=== PATIENT | male | born 1950 | race Caucasian/White ===

== ENCOUNTER 2017-09-18 11:43 | Observation (INO) | payer MEDICARE, MEDICAID ==
[2017-09-18] MEDS ORDERED: Amiodarone 150 MG IVPREMIX* 150 MG/100 ML BAG IV ONE (11:58)
[2017-09-18] MEDS ORDERED: Aspirin Low Dose CHEW TAB* 81 MG PO ONE (11:58)
[2017-09-18] MEDS ORDERED: Amiodarone 360 MG IVPREMIX* 360 MG/200 ML BAG IV ONE (12:00)
[2017-09-18] MEDS ORDERED: NS 0.9% 1000 ML* 1,000 ML IV SCH (12:00)
[2017-09-18 12:34] LABS: ABS Basophils 0.1 10^3/ul (0-0.2); ABS Eosinophils 0.1 10^3/ul (0-0.6); ABS Neutrophils 4.5 10^3/ul (1.5-7.7); Hemoglobin 16.5 g/dl (14.0-18.0); Red Blood Count 5.27 10^6/ul (4.0-5.4); White Blood Count 6.4 10^3/ul (3.5-10.8)
[2017-09-18 12:36] LABS: ABS Lymphocytes 1.1 10^3/ul (1.0-4.8); ABS Monocytes 0.7 10^3/ul (0-0.8); ABS Nucleated RBC 0.02 10^3/ul; Eosinophil % 1.8 % (0-6); Hematocrit 47 % (42-52); Lymphocyte % 17.6 % (25-47); Mean Corpuscular HGB Conc 35 g/dl (31-36); Mean Corpuscular Hemoglobin 31 pg (27-31); Mean Corpuscular Volume 89 fL (80-94); Mean Platelet Volume 7 um3 (7.4-10.4); Nucleated Red Blood Cells % 0.4; Platelet Count 237 10^3/ul (150-450); Red Cell Distribution Width 13 % (10.5-15)
[2017-09-18 12:51] LABS: EGFR Non-African American 78.6 (>60)
--- NOTE | 2017-09-18 12:56 | RAD ---
Indication: Chest pain. Single frontal view of the chest performed at 1215 hours was reviewed. No prior studies available for comparison. No mediastinal shift is noted. Heart is of normal size and configuration. Lung perez appear clear. IMPRESSION: NO ACTIVE CARDIOPULMONARY DISEASE IS NOTED.
[2017-09-18 12:58] LABS: INR 0.87 (0.77-1.02)
--- NOTE | 2017-09-18 14:04 | ECHO ---
Patient: VIRGINIA GUTIERREZ [facility] Rec#: [id number] : 1950 Date: 09/18/2017 Age: 67y Height: 175.26 cm / 69.0 in Weight: 98.43 kg / 216.9 lbs Sex: M BSA: 2.14 Room#: ED 12 Admit Date#: 09/18/2017 Type: Inpatient Referring: Jan Recinos MD Reading: Avinash Renteria MD Addressograph Operator: Audra Holm,DYLANCS,RDMS CC: Audra De La Garza NP Transthoracic Echocardiogram Indication: CP, near syncope BP: 172/87 HR: 81 Rhythm: NSR Findings History: HLD, GERD, former smoker, ETOH Technical Comments: The study quality is fair. The study is technically limited due to the patient's smoking history. Left Ventricle: The left ventricular chamber size is normal. Mild to moderate concentric left ventricular hypertrophy is observed.sigmoid septum. The estimated ejection fraction is 55-60%. Abnormal left ventricular diastolic filling is observed, consistent with impaired relaxation. Left Atrium: The left atrium is mildly dilated. Right Ventricle: The right ventricular chamber size and systolic function are within normal limits. The right ventricle wall thickness is mildly increased. Right Atrium: The right atrial cavity size is normal. Aortic Valve: The aortic valve is trileaflet. The aortic valve leaflets are mildly thickened. There is no evidence of aortic regurgitation. There is no evidence of aortic stenosis. Mitral Valve: The mitral valve leaflets are mildly thickened. There is a trace of mitral regurgitation. There is no evidence of mitral stenosis. Tricuspid Valve: The tricuspid valve leaflets are normal. There is trace tricuspid regurgitation. No pulmonary hypertension is noted. Pulmonic Valve: The pulmonic valve structure is not well visualized. There is no evidence of pulmonic regurgitation. Pericardium: There is no significant pericardial effusion. Aorta: The aortic root appears normal. There is no dilatation of the aortic arch. Pulmonary Artery: The main pulmonary artery is not well visualized. Venous: The inferior vena cava appears normal in size. There is an approximate 50% respiratory change in the inferior vena cava dimension. Summary: There was not any prior study for comparison. Conclusions The study quality is fair. Mild to moderate concentric left ventricular hypertrophy is observed. The estimated ejection fraction is 55-60%. There is an E to A reversal in the mitral valve flow pattern suggestive of diastolic dysfunction. The left atrium is mildly dilated. The right ventricle wall thickness is mildly increased. There is a trace of mitral regurgitation. There is trace tricuspid regurgitation. Measurements Name Value Normal Range RVIDd (AP) 2D 2.4 cm (0.9 - 2.6) RVDdMajor (2D) 3.5 cm (2.2 - 4.4) RAd ISD 4CH 3.7 cm (3.4 - 4.9) RA (A4C)W 3.4 cm (2.9 - 4.6) IVSd (2D) 1.7 cm (0.6 - 1) LVPWd (2D) 1.5 cm (0.6 - 1) LVIDd (2D) 4.1 cm (3.6 - 5.4) LVIDs (2D) 2.6 cm - LV FS (2D) 36 % (25 - 45) Aortic Annulus 2 cm (1.4 - 2.6) Ao root diameter (2D) 3.2 cm (2.1 - 3.5) Ascending Ao 3.3 cm (2.1 - 3.4) Aortic arch 2.6 cm (1.8 - 3.4) LA dimension (AP) 2D 4.2 cm (2.3 - 3.8) LAd ISD 4CH 4.3 cm (2.9 - 5.3) LA ISD 4CH W 4.6 cm (2.5 - 4.5) Name Value Normal Range LA ESV SP 4CH (A/L) 38.2 ml - LA ESV SP 2CH (A/L) 50.33 ml - LA ESV BP (A/L) 46.69 ml - LA ESV BP (A/L) index 22 ml/m2 - LA ESV SP 4CH (MOD) 35 ml - LA ESV SP 2CH (MOD) 47.76 ml - Name Value Normal Range MV E-wave Vmax 0.6 m/sec - MV deceleration time 160 msec - MV A-wave Vmax 0.9 m/sec - MV E:A ratio 0.7 ratio - LV septal e' Vmax 0.05 m/sec - LV lateral e' Vmax 0.05 m/sec - LV E:e' septal ratio 12 ratio - LV E:e' lateral ratio 12 ratio - Name Value Normal Range AV Vmax 1.2 m/sec - AV VTI 21 cm - AV peak gradient 6 mmHg - AV mean gradient 2.6 mmHg - LVOT Vmax 0.9 m/sec - LVOT VTI 18.1 cm - LVOT peak gradient 3.3 mmHg - LVOT mean gradient 1.6 mmHg - ADELIA Vmax 0.8 m/sec - Name Value Normal Range TR Vmax 2.4 m/sec - TR peak gradient 23 mmHg - RAP 3 mmHg - RVSP 26 mmHg - IVC diameter 1.5 cm - Name Value Normal Range PV Vmax 0.7 m/sec - PV peak gradient 2 mmHg -
[2017-09-18] MEDS ORDERED: Acetaminophen TAB* 325 MG PO PRN (14:33)
[2017-09-18] MEDS ORDERED: predniSONE TAB* 10 MG PO ONE (14:33)
[2017-09-18] MEDS ORDERED: Ondansetron INJ* 2 MG/ML VIAL IV PRN (14:33)
[2017-09-18] MEDS ORDERED: predniSONE TAB* 10 MG ONE (14:42)
[2017-09-18] MEDS ORDERED: predniSONE TAB* 20 MG PO ONE (15:00)
--- NOTE | 2017-09-18 15:26 | RAD ---
Indication: Near syncope. CT of the brain was performed without IV contrast. Ventricular structures are midline. No midline shift is noted. The extra-axial spaces are unremarkable. There is no evidence of intracranial mass or hemorrhage. No other high or low density lesions are identified. Mastoid air cells and paranasal sinuses are unremarkable. IMPRESSION: No intracranial mass or hemorrhage is noted.
--- NOTE | 2017-09-18 15:38 | RAD ---
Indication: Shortness of breath.. Duplex Doppler sonography of the deep venous system of both lower extremities was performed. Bilaterally the common femoral veins, proximal greater saphenous veins, proximal deep femoral veins, femoral veins, popliteal veins, posterior tibial veins appear patent and compressible. Limited evaluation of peroneal veins. IMPRESSION: NO EVIDENCE OF DEEP VENOUS THROMBOSIS OF EITHER LOWER EXTREMITY IS PRESENT. PERONEAL VEINS ARE NOT VISUALIZED BILATERALLY.
[2017-09-18 16:03] LABS: Urine Appearance Clear; Urine Blood Negative (Negative); Urine Color Yellow; Urine Ketones Negative (Negative); Urine Protein Negative (Negative); Urine Specific Gravity 1.009 (1.010-1.030); Urine Urobilinogen Negative (Negative)
--- NOTE | 2017-09-18 16:19 | ED ---
Eran Ch Tecjoon, scribed for Jan Recinos MD on 09/18/17 at 1222 . HPI Chest Pain - HPI Summary HPI Summary: This patient is a 67 year old male BIBA to [facility] accompanied by family with a chief complaint of chest pressure since this morning at approximately 1000. The pain is rated 4/10 in severity and described as "tightness". Symptoms aggravated by nothing. Symptoms alleviated by nothing. The patient reports that he suddenly felt dizzy, weak, pressure down his left arm, and diaphoretic. He felt like he was going to pass out. Patient reports the fuzziness and weakness is still present. Patient denies a hx of hypertension. Patient denies any other issues at this time. - History of Current Complaint Chief Complaint: EDChestPainROMI Time Seen by Provider: 09/18/17 11:55 Hx Obtained From: Patient Onset/Duration: Started Hours Ago - approx 1000, Still Present Time of Onset: 10:00 Timing: Constant Initial Severity: Mild Current Severity: Mild Pain Intensity: 4 Pain Scale Used: 0-10 Numeric Chest Pain Radiates: Yes Chest Pain Radiates To:: Arm - left arm Character: Tightness Aggravating Factor(s): Nothing Alleviating Factor(s): Nothing Associated Signs and Symptoms: Positive: Weakness, Dizziness, Diaphoresis. Negative: Syncope - Allergy/Home Medications Allergies/Adverse Reactions: Allergies Allergy/AdvReac Type Severity Reaction Status Date / Time Chlorine Allergy Rash And Verified 06/01/16 11:56 Itching Iodinated Diagnostic Agents Allergy Rash Verified 05/25/16 10:43 PMH/Surg Hx/FS Hx/Imm Hx Previously Healthy: No Endocrine/Hematology History: Denies: Hx Diabetes, Hx Systemic Lupus Erythematosus Cardiovascular History: Denies: Hx Hypertension GI History: Reports: Hx Gastroesophageal Reflux Disease - ON MEDICATION FOR History: Denies: Hx Dialysis, Hx Renal Disease Musculoskeletal History: Denies: Hx Rheumatoid Arthritis Sensory History: Reports: Hx Cataracts - BILATERAL, Hx Contacts or Glasses - GLASSES Denies: Hx Hearing Aid Opthamlomology History: Reports: Hx Cataracts - BILATERAL, Hx Contacts or Glasses - GLASSES - Cancer History Hx Chemotherapy: No - Surgical History Surgery Procedure, Year, and Place: Plastic surgery left side face late Hx Anesthesia Reactions: No Infectious Disease History: No Infectious Disease History: Denies: Traveled Outside the [place] in Last 30 Days - Family History Known Family History: Negative: Cardiac Disease, Hypertension - Social History Alcohol Use: Daily Alcohol Amount: BEER- 6 PACK PER DAY- MOST OF THE TIME Hx Substance Use: No Substance Use Type: Reports: None Hx Tobacco Use: Yes Smoking Status (MU): Former Smoker Amount Used/How Often: 1 PPD X 40 YEARS Have You Smoked in the Last Year: No Review of Systems Positive: Skin Diaphoresis, Other - dizziness Positive: Chest Pain - "tightness" Positive: Weakness. Negative: Syncope All Other Systems Reviewed And Are Negative: Yes Physical Exam - Summary Physical Exam Summary: General: well-appearing, no pain distress Skin: warm, color reflects adequate perfusion, dry Head: normal Eyes: EOMI, BENNY ENT: normal Neck: supple, nontender Respiratory: CTA, breath sounds present Cardiovascular: RRR Abdomen: soft, nontender Bowel: present Musculoskeletal: normal, strength/ROM intact Neurological: normal, sensory/motor intact, A&O x3 Psychological: affect/mood appropriate Triage Information Reviewed: Yes Vital Signs On Initial Exam: Initial Vitals Temp Pulse Resp BP Pulse Ox 98.2 F 80 18 166/83 89 09/18/17 11:47 09/18/17 11:47 09/18/17 11:47 09/18/17 11:47 09/18/17 11:47 Vital Signs Reviewed: Yes - [place] Coma Scale Coma Scale Total: 15 Diagnostics - Vital Signs Vital Signs Temp Pulse Resp BP Pulse Ox 09/18/17 11:47 98.2 F 80 18 166/83 89 - Laboratory Lab Results: Lab Results 09/18/17 09/18/17 09/18/17 Range/Units 12:25 12:25 12:25 WBC 6.4 (3.5-10.8) 10^3/ul RBC 5.27 (4.0-5.4) 10^6/ul Hgb 16.5 (14.0-18.0) g/dl Hct 47 (42-52) % MCV 89 (80-94) fL MCH 31 (27-31) pg MCHC 35 (31-36) g/dl RDW 13 (10.5-15) % Plt Count 237 (150-450) 10^3/ul MPV 7 L (7.4-10.4) um3 Neut % (Auto) 69.2 (38-83) % Lymph % (Auto) 17.6 L (25-47) % Burnet % (Auto) 10.3 H (1-9) % Eos % (Auto) 1.8 (0-6) % Baso % (Auto) 1.1 (0-2) % Absolute Neuts (auto) 4.5 (1.5-7.7) 10^3/ul Absolute Lymphs (auto) 1.1 (1.0-4.8) 10^3/ul Absolute Monos (auto) 0.7 (0-0.8) 10^3/ul Absolute Eos (auto) 0.1 (0-0.6) 10^3/ul Absolute Basos (auto) 0.1 (0-0.2) 10^3/ul Absolute Nucleated RBC 0.02 10^3/ul Nucleated RBC % 0.4 INR (Anticoag Therapy) 0.87 (0.77-1.02) APTT 33.9 (26.0-36.3) seconds D-Dimer, Quantitative < 200 (Less Than 230) ng/mL Sodium 133 (133-145) mmol/L Potassium TNP Chloride 105 (101-111) mmol/L Carbon Dioxide 20 L (22-32) mmol/L Anion Gap 8 (2-11) mmol/L BUN 16 (6-24) mg/dL Creatinine 0.96 (0.67-1.17) mg/dL Est GFR ( Amer) 101.1 (>60) Est GFR (Non-Af Amer) 78.6 (>60) BUN/Creatinine Ratio 16.7 (8-20) Glucose 120 H (70-100) mg/dL Lactic Acid (0.5-2.0) mmol/L Calcium 9.3 (8.6-10.3) mg/dL Magnesium 2.3 (1.9-2.7) mg/dL Total Bilirubin 0.50 (0.2-1.0) mg/dL AST TNP ALT 47 (7-52) U/L Alkaline Phosphatase 46 (34-104) U/L Total Creatine Kinase 209 (10-223) U/L CK-MB (CK-2) 4.9 (0.6-6.3) ng/mL Troponin I 0.00 (<0.04) ng/mL B-Natriuretic Peptide ( - 100) pg/mL Total Protein 7.6 (6.4-8.9) g/dL Albumin 4.1 (3.2-5.2) g/dL Globulin 3.5 (2-4) g/dL Albumin/Globulin Ratio 1.2 (1-3) TSH 0.73 (0.34-5.60) mcIU/mL 09/18/17 09/18/17 09/18/17 Range/Units 12:25 12:25 13:43 WBC (3.5-10.8) 10^3/ul RBC (4.0-5.4) 10^6/ul Hgb (14.0-18.0) g/dl Hct (42-52) % MCV (80-94) fL MCH (27-31) pg MCHC (31-36) g/dl RDW (10.5-15) % Plt Count (150-450) 10^3/ul MPV (7.4-10.4) um3 Neut % (Auto) (38-83) % Lymph % (Auto) (25-47) % Burnet % (Auto) (1-9) % Eos % (Auto) (0-6) % Baso % (Auto) (0-2) % Absolute Neuts (auto) (1.5-7.7) 10^3/ul Absolute Lymphs (auto) (1.0-4.8) 10^3/ul Absolute Monos (auto) (0-0.8) 10^3/ul Absolute Eos (auto) (0-0.6) 10^3/ul Absolute Basos (auto) (0-0.2) 10^3/ul Absolute Nucleated RBC 10^3/ul Nucleated RBC % INR (Anticoag Therapy) (0.77-1.02) APTT (26.0-36.3) seconds D-Dimer, Quantitative (Less Than 230) ng/mL Sodium (133-145) mmol/L Potassium 4.2 Chloride (101-111) mmol/L Carbon Dioxide (22-32) mmol/L Anion Gap (2-11) mmol/L BUN (6-24) mg/dL Creatinine (0.67-1.17) mg/dL Est GFR ( Amer) (>60) Est GFR (Non-Af Amer) (>60) BUN/Creatinine Ratio (8-20) Glucose (70-100) mg/dL Lactic Acid 0.9 (0.5-2.0) mmol/L Calcium (8.6-10.3) mg/dL Magnesium (1.9-2.7) mg/dL Total Bilirubin (0.2-1.0) mg/dL AST 35 ALT (7-52) U/L Alkaline Phosphatase (34-104) U/L Total Creatine Kinase (10-223) U/L CK-MB (CK-2) (0.6-6.3) ng/mL Troponin I (<0.04) ng/mL B-Natriuretic Peptide 8 ( - 100) pg/mL Total Protein (6.4-8.9) g/dL Albumin (3.2-5.2) g/dL Globulin (2-4) g/dL Albumin/Globulin Ratio (1-3) TSH (0.34-5.60) mcIU/mL Result Diagrams: 09/18/17 12:25 09/18/17 13:43 Lab Statement: Any lab studies that have been ordered have been reviewed, and results considered in the medical decision making process. - Radiology CXR Xray Interpretation: No Acute Changes - IMPRESSION: NO ACTIVE CARDIOPULMONARY DISEASE IS NOTED. Radiology Interpretation Completed By: Radiologist - CT CT Brain CT Interpretation: No Acute Changes - IMPRESSION: No intracranial mass or hemorrhage is noted. ED physician has reviewed this radiology report. CT Interpretation Completed By: Radiologist - EKG 1152 Cardiac Rate: NL EKG Rhythm: Sinus Rhythm - [address] Segment: Normal Ectopy: None - Additional Comments Diagnostic Additional Comments: Transthoracic Echocardiogram reveals, per radiologist, Conclusions The study quality is fair. Mild to moderate concentric left ventricular hypertrophy is observed. The estimated ejection fraction is 55-60%. There is an E to A reversal in the mitral valve flow pattern suggestive of diastolic dysfunction. The left atrium is mildly dilated. The right ventricle wall thickness is mildly increased. There is a trace of mitral regurgitation. There is trace tricuspid regurgitation. ED physician has reviewed this radiology report. Venous Doppler Study reveals, per radiologist, IMPRESSION: NO EVIDENCE OF DEEP VENOUS THROMBOSIS OF EITHER LOWER EXTREMITY IS PRESENT. PERONEAL VEINS ARE NOT VISUALIZED BILATERALLY. ED physician has reviewed this radiology report. Chest Pain Course/Dx - Course Course Of Treatment: Bloodwork Obtained. Urinalysis Obtained. Medications reviewed. Allergies noted. In the ED course the patient was given Aspirin, Nexterone. 9 BEAT RUN OF VTACH SEEN ON MONITOR. PACER PADS PLACED ON PATIENT AND AMIODORONE GIVE. CARDIOLOGY, DR KAMARA, SAW PATIENT IN ED. POSSIBLE ALLERY TO CT DYE SO, PATIENT WILL BE PRETREATED PRIOR TO CTA CHEST DURING ADMISSION. ADMIT HOSPITALIST. - Diagnoses Provider Diagnoses: V-tach, Near syncope, Chest pain - Critical Care Time Critical Care Time: 30-74 min Discharge - Discharge Plan Condition: Stable Disposition: ADMITTED TO [facility] The documentation as recorded by the Eran marshall Tecjoon accurately reflects the service I personally performed and the decisions made by me, Jan Recinos MD.
[2017-09-18 19:05] LABS: EGFR Non-African American 73.3 (>60)
--- NOTE | 2017-09-18 21:17 | CONS ---
CARDIOLOGY CONSULTATION: DATE OF CONSULT: 09/18/17 CONSULTING PROVIDER: Lior Stephenson NP REASON FOR EVALUATION: Near syncope, chest pain. HISTORY OF PRESENT ILLNESS: This is a 67-year-old gentleman, who denies past medical history except for tobacco use, discontinued 10 years ago. He said that he was in his usual state of health, cooking in the kitchen, he said he had deep in turn on the stove, but had been standing, preparing cookies and brownies. He said that he noticed that he became lightheaded and sweaty and then developed some right- sided chest tightness and left hand tingling. He said that it was difficult for him to make it to the chair, he sat in the chair , and he said the symptoms lasted about half hour. They called an ambulance and he was brought to the hospital. He said that his feet started tingling during the ride to the hospital and that he was apprehensive about the whole situation. He said when he was arrived here, he had O2 sat 89% and seemed to be short of breath, that resolved over next hour or so. He also was noted to have a short run of nonsustained wide complex tachycardia while being observed and talking. He had no symptoms and in retrospect it is possible that was artifact with what appears to be the peak of the QRS complexes merging through the "wide complex tachycardia." He reports he has one cup of coffee a day, but does drink alcohol 6 to 10 beers a day. He denies any blackouts or seizures. He denies previous history of murmurs, rheumatic heart disease. He says he did have a stress test at about 1999, which was negative according to the patient and in fact he did have a stress test in April of 2002, which revealed no evidence of ischemia or infarct. He was admitted at that time because the chest pain ruled out and was thought it was due to gastroesophageal reflux. He denies hypertension, diabetes, hyperlipidemia. He denies any allergies. He does say that he walks around his house, sometimes get short of breath walking short distances, other times can walk up at hill. He says that he quit tobacco use 10 years ago after smoking a pack per day for 40 years. The patient denies snoring, denies he falls asleep easily during the day.He dose report a history of syncope with labs draws/exposure to the sight of blood raising the possibiltity of vasovagal syncope. PAST MEDICAL HISTORY: Includes gastroesophageal reflux, tobacco use in the past. He was told of asthmatic bronchitis over the summer and given a metered- dose inhaler but does not use it regularly. PAST SURGICAL HISTORY: Includes multiple fractures and he had trauma to his left eye and had a wire placed on his left eye. MEDICATIONS: His medications at home include Protonix 40 mg b.i.d. ALLERGIES: In the chart, it says that his allergies include CHLORINE with itching and IODINATED AGENTS. In April of 2016, it was noted that he had a rash on his thigh two days after a CT, questionable allergy. SOCIAL HISTORY: He was twice and is now engaged to third partner. He has 3 children. 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 REVIEW OF SYSTEMS: Review of systems x10 was negative except as above. PHYSICAL EXAMINATION: He is a well-developed, overweight gentleman, in no apparent distress. Pulse is 74, blood pressure 159/96, O2 sats 96% on 2 L nasal cannula. Extraocular muscles intact. Sclerae anicteric. Carotids 2+ without bruits. No cervical adenopathy or thyromegaly. Cardiac Exam: S1, S2. No clear murmurs, gallops, or rubs. Chest: Clear. No CVAT. Abdomen: Obese with some tenderness in the right upper quadrant and epigastric area, which he says is 20 years old. Femoral pulses intact without bruits. Distal pulses intact with 1+ edema in the lower extremities, which he says is chronic and resolves with elevation of his legs. Negative Homans' sign. Motor strength 5/5 bilaterally. Deep tendon reflexes 2/4. Alert and oriented x3. DIAGNOSTIC STUDIES/LAB DATA: Include normal CBC. Sodium 133, potassium pending , bicarb 105, BUN of 16, creatinine of 0.96, glucose of 120. ALT of 47, CK of 209, troponin of 0, BNP of 8, TSH of 0.73. EKG, normal sinus rhythm, no acute changes. Chest x-ray was negative. IMPRESSION: My impression is that Mr. Bardales had an episode of diaphoresis and near syncope and hypoxemia of unclear etiology. So far, his lab workup is negative, although potassium is pending. He does have elevated blood pressures. I discussed the case with Lior Stephenson and with Dr. Recinos. There is no evidence of ischemia or infarct. However, we will need to check serial enzymes. At this point in time, the abnormality noted on his EKG raising possibility of VT but appears to be artifact.However, we cannot exclude that an arrhythmia is contributing to his symptoms. Therefore, I recommend the followin. Would obtain an echocardiogram to evaluate for wall motion abnormalities. 2. I have suggested a CT scan to evaluate for pulmonary embolism and dissection. 3. Would rule out for myocardial infarction with serial EKG's and serial troponins. 4. I would check his potassium. 5. I have advised him to decrease his intake of alcohol with increase of intake of water. Further recommendations will depend on his clinical course. [id number]/[facility] #: [id number] TESFAYE
[2017-09-18] MEDS: Heparin VIAL(*) 5000 UNITS/ML VIAL (FIVE THOUSAND) SUBCUT SCH (21:47)
[2017-09-18] MEDS: Omeprazole CAP* 20 MG PO SCH (21:47)
--- NOTE | 2017-09-18 22:58 | HP ---
CC: Dr. Renteria * HISTORY AND PHYSICAL: DATE OF ADMISSION: 09/18/17 PRIMARY CARE PROVIDER: None. ATTENDING PHYSICIAN WHILE IN THE HOSPITAL: Juancho Camargo MD * (report dictated by Lior Stephenson NP). CONSULTING CORN MILLER: Dr. Renteria. CHIEF COMPLAINT: 1. Lightheadedness. 2. Presyncope. HISTORY OF PRESENT ILLNESS: Mr. Bardales is a 67-year-old male patient presenting to the ED today stating that he was standing up today, he was working on making [employer] for the holidays and he became suddenly lightheaded, felt nauseated, got sweaty, felt like he was going to faint. He was able to get to his phone. He was having trouble reading the numbers in the phone, the caller ID, he said I did not have my glasses on, he said that my either vision was not blurry or doubled. He had trouble seeing the smaller fine print. He was able to call 911 and he came into the hospital because he felt like he was going to faint. He says that he just felt really lightheaded. He came on suddenly. He said he did have some left and right- sided chest tightness. He became nauseous. He felt like he was going to vomit. He said that when he was walking to his chair, he felt very unbalanced and unsteady. He denied having any recent illnesses. No recent fevers, chills, nausea, vomiting. No diarrhea recently. No congestion. No URI symptoms were reported. He says he has had chronically for 20 years epigastric discomfort with no clear etiology. He denied having any recent trips or travel. Denied having any pain in the leg, swelling in the legs or calf pain. He was concerned because he says this was the worst he has ever felt. He felt like he was going to faint. He was scared. He called 911 and he came into the hospital. He was evaluated here and they hooked him up to the monitor, there was a question if he had a run of ventricular tachycardia and at that point he was started on amiodarone drip and we were asked to evaluate for admission. PAST MEDICAL HISTORY: Significant for: 1. Hyperlipidemia. 2. GERD. PAST SURGICAL HISTORY: He has had cataract extraction. MEDICATIONS: Home meds include Protonix 40 mg p.o. b.i.d. ALLERGIES TO MEDICATIONS: Include IV DYE questionable and also CHLORINE. FAMILY HISTORY: Mother had a history of CVA, [place] when she was in her 80s. Father had a history of cancer. SOCIAL HISTORY: He is a former smoker. He does drink 6 to 8 beers daily. Surrogate decision maker is his significant other Aidee. REVIEW OF SYSTEMS: There is no documented fever. He denied having any significant weight change. He denies having any double vision. There is no ear discharge. He denies having any rhinorrhea. No sore throat. No thyroid enlargement. He did admit to having chest discomfort, described as a pressure squeezing that he says he has never had before and he has never had exertional chest pain that he can recall. He denied having any shortness of breath. No orthopnea, no nocturnal dyspnea. Denied having any abdominal pain. He did feel nauseous and sweaty, felt hot and flushed. There was no loss of consciousness, no pruritus, and no skin ulcerations. Review of 14 systems completed, all others negative. PHYSICAL EXAMINATION GENERAL: At this time, Mr. Bardales is a 67-year-old male patient. He appears to be well nourished and well developed. He does not appear to be in any acute distress. VITAL SIGNS: Blood pressure 146/89 with a pulse of 72, respirations 18, O2 sat 97%, and temperature 98.2. HEENT: Head: Atraumatic, normocephalic. Eyes: EOMs are intact. Sclerae anicteric, not pale. Throat: Oral mucosa appears to be moist. No oropharyngeal erythema. NECK: Supple. LUNGS: Clear to auscultation bilaterally. No wheezes, rales, or rhonchi. HEART: Sounds S1, S2. Regular rate and rhythm. No murmurs, rubs, or gallops. ABDOMEN: Soft, flat, nontender. Bowel sounds are present. EXTREMITIES: Pulses are 2+ throughout. He is moving all 4 extremities with 5/ 5 strength. NEUROLOGIC: He is awake, he is alert, he is oriented x3. Tongue midline. Grain Combiner are equal. No gross focal deficits. SKIN: Intact. DIAGNOSTIC STUDIES/LAB DATA: WBC 6.4, RBC of 5.27, hemoglobin 16.5, hematocrit 47, platelet count of 237. His INR is 0.87, PTT of 33.9, D-dimer less than 200. Sodium is 133, potassium 4.2, chloride 105, bicarb 20, BUN 16, creatinine of 0.96, glucose 120, lactate 0.9, calcium 9.3, mag 2.0. Total bilirubin 0.5, AST 25, ALT 47, alk phos 46, CK 209, CK-MB 4.9, troponin 0. BNP of 8, albumin 4.1, TSH of 0.73. He had a thoracic echo done here in the ED. It showed an EF of 50% to 55%. He had a chest x-ray obtained today, which showed no active cardiopulmonary disease. He had an EKG obtained today showing normal sinus rhythm with a rate of 79. No ST elevations or T-wave inversions were noted. Old medical records were reviewed. ASSESSMENT AND PLAN: Mr. Bardales is a 67-year-old male patient who appears well nourished, well developed. He is seen in the ER stretcher, does not appear to be in any acute distress. There is concern today when he came in because there was a concern for a possible near syncopal episode. We were asked to evaluate for admission as there was concern for possible ventricular tachycardia. He will be admitted under observation status for: 1. Near syncope with concern for possible ventricular tachycardia again. Dr. Renteria did evaluate the patient. He was not convinced that this was clearly ventricular tachycardia, so at that point amiodarone was stopped and it was recommended that the patient be admitted under observation. I will place him on telemetry. We will go ahead and give him aspirin. We will cycle his troponin. Dr. Renteria would like to check a CTA of the chest to rule out pulmonary embolism. I think this is less like that the D-dimer is negative, but I will premedicate him and go ahead and get a CTA tomorrow to rule this out. He is not having any chest pain now. He says he is feeling much better. We will get orthostatic blood pressures, place him on telemetry and we will continue to follow. I will get a CT of the brain and in addition to this I will check ultrasound of the lower extremities to determine if there is any cause other than obviously have low threshold, we will start anticoagulation. I do not think we need to start anticoagulation. At this point, he is not having any issues with oxygenation. Currently, he is not tachycardic. He is not having any more chest discomfort. I think clinically the pulmonary embolism is less likely. 2. Gastroesophageal reflux disease. Continue PPI therapy. 3. History of hyperlipidemia. We will check the lipids in the morning. 4. DVT prophylaxis. I will place him on heparin subcu for the time being. 5. Code status. Full code. 6. Fluids, electrolytes, and nutrition. He can have a regular diet. TIME SPENT: Time spent on the admission was 60 minutes, greater than half the time was spent [id number] with the patient obtaining my history and physical, the other half of the time was spent going over the plan of care with the patient and implementing plan of care. I did discuss the plan of care with my attending, Dr. Camargo; he is in agreement. LIOR STEPHENSON NP [id number]/[facility] #: [id number] TESFYAE
[2017-09-19 05:30] LABS: ABS Basophils 0 10^3/ul (0-0.2); ABS Eosinophils 0 10^3/ul (0-0.6); ABS Lymphocytes 1.5 10^3/ul (1.0-4.8); ABS Monocytes 0.7 10^3/ul (0-0.8); ABS Neutrophils 4.8 10^3/ul (1.5-7.7); ABS Nucleated RBC 0.01 10^3/ul; Eosinophil % 0.4 % (0-6); Hematocrit 44 % (42-52); Hemoglobin 15.6 g/dl (14.0-18.0); Lymphocyte % 21.5 % (25-47); Mean Corpuscular HGB Conc 35 g/dl (31-36); Mean Corpuscular Hemoglobin 31 pg (27-31); Mean Corpuscular Volume 89 fL (80-94); Mean Platelet Volume 7 um3 (7.4-10.4); Nucleated Red Blood Cells % 0.1; Platelet Count 248 10^3/ul (150-450); Red Blood Count 4.98 10^6/ul (4.0-5.4); Red Cell Distribution Width 13 % (10.5-15); White Blood Count 7.1 10^3/ul (3.5-10.8)
[2017-09-19 05:38] LABS: EGFR Non-African American 71.7 (>60)
[2017-09-19 05:39] LABS: INR 0.9 (0.77-1.02)
[2017-09-19] MEDS: Heparin VIAL(*) 5000 UNITS/ML VIAL (FIVE THOUSAND) SUBCUT SCH ×3 (05:40→21:29)
[2017-09-19] MEDS ORDERED: predniSONE TAB* 50 MG PO ONE ×2 (08:30→20:30)
[2017-09-19] MEDS ORDERED: Potassium Chloride LIQUID* 20 MEQ PACKET PO ONE (10:10)
[2017-09-19] MEDS: Omeprazole CAP* 20 MG PO SCH ×2 (10:43→19:54)
[2017-09-19] MEDS: Aspirin EC Low Dose* 81 MG TAB.EC PO SCH (10:43)
[2017-09-19] MEDS: predniSONE TAB* 50 MG PO SCH ×3 (10:43→21:28)
[2017-09-19] MEDS ORDERED: diPHENhydraMINE PO* 50 MG PO ONE ×2 (14:30→21:30)
[2017-09-19] MEDS ORDERED: predniSONE TAB* 20 MG PO ONE (14:30)
--- NOTE | 2017-09-19 17:16 | PN ---
Subjective Date of Service: 09/19/17 Interval History: Patient admitted yesterday w/ near-syncope. [place] drained suddenly. In ambulance , had some RT-sided chest pain. Today had 30 minutes of dizziness, vertigo, with nystagmus seen by nursing. This felt different than yesterday's event. No chest pain, palpitations. Family History: Unchanged from Admission Social History: Unchanged from Admission Past Medical History: Unchanged from Admission Objective Active Medications: Acetaminophen (Tylenol Tab*) 650 mg PO Q4H PRN PRN Reason: FEVER/PAIN Aspirin (Aspirin Ec Low Dose*) 81 mg PO DAILY [facility] Last Admin: 09/19/17 10:43 Dose: 81 mg Diphenhydramine HCl (Benadryl Po*) 50 mg PO ONCE ONE Stop: 09/19/17 21:31 Heparin Sodium (Porcine) (Heparin Vial(*)) 5,000 units SUBCUT Q8HR [facility] Last Admin: 09/19/17 15:33 Dose: Not Given Omeprazole (Prilosec Cap*) 20 mg PO BID [facility] Last Admin: 09/19/17 10:43 Dose: 20 mg Ondansetron HCl (Zofran Inj*) 4 mg IV Q6H PRN PRN Reason: NAUSEA Prednisone (Deltasone Tab*) 50 mg PO Q6H [facility] Stop: 09/19/17 21:31 Last Admin: 09/19/17 15:25 Dose: 50 mg Vital Signs - 8 hr 09/19/17 09/19/17 11:34 15:11 Temperature 36.4 C Pulse Rate 79 81 Respiratory 20 Rate Blood Pressure 155/91 159/87 (mmHg) O2 Sat by Pulse 97 94 Oximetry Oxygen Devices in Use Now: None Appearance: alert, sitting up, no distress Eyes: No Scleral Icterus, - - nystagmus to LT Ears/Nose/Mouth/Throat: Clear Oropharnyx Neck: NL Appearance and Movements; NL JVP Respiratory: Symmetrical Chest Expansion and Respiratory Effort Cardiovascular: NL Sounds; No Murmurs; No JVD Abdominal: NL Sounds; No Tenderness; No Distention Neurological: Alert and Oriented x 3 Lines/Tubes/Other Access: Clean, Dry and Intact Peripheral IV Result Diagrams: 09/19/17 04:54 09/19/17 04:54 Additional Lab and Data: Laboratory Tests 09/18/17 09/18/17 09/18/17 12:25 15:30 18:43 D-Dimer, Quantitative < 200 Glucose 208 H Hemoglobin A1c Troponin I 0.00 0.00 09/19/17 09/19/17 04:54 04:54 D-Dimer, Quantitative Glucose 105 H Hemoglobin A1c 5.4 Troponin I 0.00 Diagnostic Imaging: CTA chest pending, needs 13 hr prep for contrast Assess/Plan/Problems-Billing Assessment: 67 year old man admitted with pre-syncope, observed on suspicion of PE, vs VT - Patient Problems (1) Pre-syncope Current Visit: Yes Status: Acute Priority: High Comment: -differential includes arrhythmia, pulmonary embolism (despite normal d-dimer) or viral labyrinthitis. -Continue monitor on telemetry -CT chest this evening -cardiology input appreciated. (2) DVT prophylaxis Current Visit: Yes Status: Chronic Priority: Low Code(s): WCF1273 - SNOMED Code(s): 732660110 Comment: -SC heparin refused by patient
[2017-09-19] MEDS ORDERED: Iohexol 350* (CONTRAST) 500 ML MDV IV ONE (21:56)
--- NOTE | 2017-09-19 22:11 | RAD ---
INDICATION: Near syncope. COMPARISON: Comparison is made with a prior chest x-ray study from September 18, 2017. TECHNIQUE: A CT angiogram of the chest was performed with intravenous following intravenous injection of 81 ml of is a vague 320 nonionic contrast. Contiguous axial sections were obtained from the lung apices through the lung bases. Images were reconstructed in the coronal and sagittal planes. FINDINGS: There is slightly less than optimal opacification of the pulmonary arteries limiting the exam slightly. No intraluminal filling defect or pulmonary embolism is seen. The heart is within normal limits in size. No pericardial effusion is present. There are coronary artery calcifications present. The thoracic aorta is normal in caliber and demonstrates homogeneous contrast opacification. No significant enlarged mediastinal or hilar lymph nodes are seen. There is mild dependent bilateral lower lobe infiltrates most consistent with atelectasis. The lungs are otherwise clear. No pleural effusion is present. Images of the upper abdomen demonstrate fatty infiltration of the liver. No acute finding is seen. No significant focal osseous abnormality is seen. IMPRESSION: 1. SLIGHTLY LIMITED EXAM, NO EVIDENCE FOR PULMONARY EMBOLISM. 2. HEPATIC STEATOSIS.
[2017-09-20 07:57] VITALS: BP 150/81
[2017-09-20] MEDS: Heparin VIAL(*) 5000 UNITS/ML VIAL (FIVE THOUSAND) SUBCUT SCH (08:01)
[2017-09-20] MEDS: Omeprazole CAP* 20 MG PO SCH (08:52)
[2017-09-20] MEDS: Aspirin EC Low Dose* 81 MG TAB.EC PO SCH (08:52)
--- NOTE | 2017-09-20 08:59 | PN ---
Subjective Date of Service: 09/20/17 Interval History: Patient seen and examined at bedside. No further chest pain. CTA negative. Eager for discharge. Family History: Unchanged from Admission Social History: Unchanged from Admission Past Medical History: Unchanged from Admission Objective Active Medications: Acetaminophen (Tylenol Tab*) 650 mg PO Q4H PRN Aspirin (Aspirin Ec Low Dose*) 81 mg PO DAILY [facility] Heparin Sodium (Porcine) (Heparin Vial(*)) 5,000 units SUBCUT Q8HR [facility] Omeprazole (Prilosec Cap*) 20 mg PO BID [facility] Ondansetron HCl (Zofran Inj*) 4 mg IV Q6H PRN Vital Signs Temp Pulse Resp BP Pulse Ox 97.3 F 80 18 150/81 94 09/20/17 07:53 09/20/17 07:53 09/20/17 07:57 09/20/17 07:53 09/20/17 07:53 Oxygen Devices in Use Now: None Appearance: sitting up in bed, NAD Eyes: No Scleral Icterus, PERRLA Ears/Nose/Mouth/Throat: NL Teeth, Lips, Gums Neck: NL Appearance and Movements; NL JVP Respiratory: Symmetrical Chest Expansion and Respiratory Effort, Clear to Auscultation Cardiovascular: NL Sounds; No Murmurs; No JVD, RRR Abdominal: NL Sounds; No Tenderness; No Distention Skin: No Rash or Ulcers Neurological: Alert and Oriented x 3, NL Muscle Strength and Tone Lines/Tubes/Other Access: Clean, Dry and Intact Peripheral IV Nutrition: Taking PO's Result Diagrams: 09/19/17 04:54 09/19/17 04:54 Additional Lab and Data: . Diagnostic Imaging: . Assess/Plan/Problems-Billing 67 year old man admitted with pre-syncope, observed on suspicion of PE, vs VT - Patient Problems (1) Pre-syncope Comment: Differential includes arrhythmia or viral labyrinthitis. CTA chest negative for PE. Cards recommends stress test this AM. No arrhythmia seen on telemetry. (2) DVT prophylaxis Comment: Pt refused SQ Heparin. (3) Full code status Status and Disposition: OBV for syncope. D/c home after stress test this AM.
--- NOTE | 2017-09-20 12:20 | RAD ---
Edited for charges. INDICATION: Chest pain. COMPARISON: There are no prior studies available for comparison. Technique: A single day myocardial perfusion stress study was performed. Initially a resting study was performed. The patient was given an intravenous injection of 10.5 mCi of technetium 99m tetrofosmin and and the heart was imaged in multiple projections. The patient returned later in the day and under the direction of Dr. Renteria, the patient was exercised to a peak heart rate of 154 beats per minute which was 99% of the maximum predicted heart rate. Subsequently the patient was given intravenous injection of 25.6 mCi of technetium 99m tetrofosmin and the heart was imaged in multiple projections. Images were reconstructed in the axial, sagittal and coronal planes and in a 3- D format. FINDINGS: There appears to be normal wall motion and myocardial thickening. The left ventricular ejection fraction was calculated to be 74%. No focal perfusion abnormalities are seen on the post exercise or resting data sets. IMPRESSION: NO EVIDENCE FOR INFARCT OR ISCHEMIA. ASSESSMENT: Low risk. MTDD
--- NOTE | 2017-09-21 04:03 | DS ---
CC: Audra De La Garza NP * DISCHARGE SUMMARY: DATE OF ADMISSION: 09/18/17 DATE OF DISCHARGE: 09/20/17 PRIMARY CARE PROVIDER: Audra De La Garza NP ATTENDING PHYSICIAN: Dr. Annia Gipson * (report dictated by Sumaya Queen NP). PRIMARY DIAGNOSIS: Syncope. SECONDARY DIAGNOSIS: Gastroesophageal reflux disease. STUDIES WHILE IN THE HOSPITAL: 1. Chest x-ray portable, 09/18/17, no active cardiopulmonary disease noted. 2. CT of the brain without contrast 09/18/17, no intracranial mass or hemorrhage is noted. 3. CT of the chest, 09/19/17, slightly limited exam, no evidence for pulmonary embolism. Hepatic steatosis. 4. Transthoracic echocardiogram, 09/18/17, study quality is fair. Mild to moderate concentric left ventricular hypertrophy is observed. The estimated ejection fraction is 55% to 60%. There is E to A reversal on the mitral valve pattern suggestive of diastolic dysfunction. The left atrium is mildly dilated. The right ventricle wall thickness is mildly increased. There is a trace of mitral regurgitation. There is a trace of tricuspid regurgitation. 5. Nuclear cardiac stress test 09/20/17 shows no evidence for infarcts or ischemia. There appears to be normal wall motion to myocardial thickening. The left ventricular ejection fraction is calculated to be 74%. MEDICATIONS: At the time of discharge were same on admission, Protonix 40 mg oral twice daily. HISTORY OF PRESENT ILLNESS AND HOSPITAL COURSE: Mr. Bardales is a 67-year-old male with past medical history significant for hyperlipidemia and GERD, who presented to the emergency room on 09/18/17 after a near syncopal episode. The patient came to the emergency room for further evaluation. In the emergency room, there is a question of whether the patient had a run of ventricular tachycardia. Dr. Renteria was consulted and evaluated the patient in the emergency room. Please refer to Dr. Renteria's dictation for detail. It was felt that the ventricular tachycardia was in fact artifact. Recommendations were to cycle troponins, place him on telemetry, and check a CTA of the chest. In addition, the patient had a brain CT. The patient has a sensitivity to iodine, hence he had to be premedicated for the CTA and spent 24 hours here awaiting for the CTA of his chest. He was not anticoagulated empirically at that time. On 09/19/17, the patient had been properly premedicated and went to have a CTA of his chest that was negative for pulmonary embolism. Subsequently , the recommendation was for the patient to have a stress test. Stress test was performed today and showed no evidence of any stress- inducible ischemia. At this point, he was stable to be discharged home. Recommendation is for the patient to properly hydrate and decrease the amount of alcohol intake as it is likely that this episode happened due to dehydration as the patient had been baking in his house for multiple days on end. On 09/20/17 vitals were stable, temperature 97.3, heart rate 80, respiratory rate 18, blood pressure 150/81, and oxygen saturation 94%. At this point, the patient was stable for discharge. DISCHARGE PLAN: The patient was discharged on a heart-healthy diet. The patient can have activity as tolerated. The patient should follow up with Audra De La Garza NP within 1 to 2 weeks. The patient should return to the hospital if he experiences any chest pain, shortness of breath, or syncopal episode. I have reviewed all these instructions with the patient and he is agreeable with this discharge. This is a summarized report of a complex medical history and hospital stay. For more details, please see the entire medical record. TIME SPENT: Time for discharge was 50 minutes and 25 minutes was spent with the patient discussing medications at discharge and followup instructions. CONDITION ON DISCHARGE: Stable. SUMAYA QUEEN NP [id number]/[facility] #: [id number] TESFAYE
== END 2017-09-20 13:45 | disposition home or self-care (01) ==
LOC: ED 11:43 → MEDTELE 14:33
PROVIDERS: ADMIT Internal Medicine; ATTEND Internal Medicine
DX: R55 Syncope and collapse (principal); R07.89 Other chest pain; I47.2 Ventricular tachycardia; R09.02 Hypoxemia; I51.7 Cardiomegaly; I10 Essential (primary) hypertension; R61 Generalized hyperhidrosis; K21.9 Gastro-esophageal reflux disease without esophagitis; Z87.891 Personal history of nicotine dependence; E78.5 Hyperlipidemia, unspecified
CPT/HCPCS: 36415; 70450; 71010; 71275; 78452; 80048; 80053; 80061; 81003; 82550; 82553; 83036; 83605; 83735; 83880; 84443; 84484; 85025; 85379; 85610; 85730; 93005; 93017; 93306; 93970; 96365; 96366; 99284; A9270-GY; A9502; G0378; J0282; J1644; J7512; Q9967

== ENCOUNTER 2018-06-13 10:59 | Inpatient (IN) | payer MEDICARE, MEDICAID ==
--- NOTE | 2018-06-13 11:25 | ED ---
Abdominal Pain/Male - HPI Summary HPI Summary: This patient is a 68 year old M BIBA to [facility] with a chief complaint of intermittent LLQ abdominal pain for the past 5-6 days. Patient was sent to the ED due to an abnormal abdominal CT finding with [facility]. Prior to patients arrival, June Irvin M.D. called to inform of likely ruptured diverticulum. Patient took Ampicillin last evening around 17:00, but has not taken any medication or food today. Patient denies significant pain. Pain is currently 1/10 in severity. Patient has no other complaints at this time. - History of Current Complaint Chief Complaint: EDAbdPain Stated Complaint: POSS ABD INFECTION PER CT SCAN TODAY Time Seen by Provider: 06/13/18 11:03 Hx Obtained From: Patient Onset/Duration: Lasting Days Timing: Intermittent Severity Currently: Mild Pain Intensity: 1 Pain Scale Used: 0-10 Numeric Location: Discrete At: LLQ Alleviating Factor(s): Nothing Associated Signs And Symptoms: Positive: Negative - Allergies/Home Medications Allergies/Adverse Reactions: Allergies Allergy/AdvReac Type Severity Reaction Status Date / Time MS Chlorine [Chlorine] Allergy Rash And Verified 06/01/16 11:56 Itching MS Iodinated Diagnostic Allergy Rash Verified 05/25/16 10:43 Agents [Iodinated Diagnostic Agents] Home Medications: Home Medications Amoxicillin/Clavulanate TAB* [Augmentin TAB 875*] 875 mg PO BID 06/13/18 [ History Confirmed 06/13/18] PMH/Surg Hx/FS Hx/Imm Hx Endocrine/Hematology History: Denies: Hx Diabetes, Hx Systemic Lupus Erythematosus Cardiovascular History: Reports: Hx Angina Denies: Hx Hypertension Respiratory History: Reports: Hx Asthma - albuterol prn Denies: Hx Chronic Obstructive Pulmonary Disease (COPD) GI History: Reports: Hx Gastroesophageal Reflux Disease - ON MEDICATION FOR History: Denies: Hx Dialysis, Hx Renal Disease Musculoskeletal History: Denies: Hx Rheumatoid Arthritis Sensory History: Reports: Hx Cataracts - BILATERAL, Hx Contacts or Glasses - GLASSES Denies: Hx Hearing Aid Opthamlomology History: Reports: Hx Cataracts - BILATERAL, Hx Contacts or Glasses - GLASSES - Cancer History Hx Chemotherapy: No - Surgical History Surgery Procedure, Year, and Place: Plastic surgery left side face late Hx Anesthesia Reactions: No Infectious Disease History: No Infectious Disease History: Denies: Traveled Outside the [place] in Last 30 Days - Family History Known Family History: Negative: Cardiac Disease, Hypertension - Social History Alcohol Use: Daily Alcohol Amount: BEER- 6 PACK PER DAY- MOST OF THE TIME Hx Substance Use: No Substance Use Type: Reports: None Hx Tobacco Use: Yes Smoking Status (MU): Former Smoker Amount Used/How Often: 1 PPD X 40 YEARS Have You Smoked in the Last Year: No Review of Systems Positive: Abdominal Pain Positive: no symptoms reported Negative: Myalgia All Other Systems Reviewed And Are Negative: Yes Physical Exam - Summary Physical Exam Summary: Appearance: The patient is well-nourished in no acute distress and in no acute pain. Skin: The skin is warm and dry and skin color reflects adequate perfusion. HEENT: The head is normocephalic and atraumatic. The pupils are equal and reactive. The conjunctivae are clear and without drainage. Nares are patent and without drainage. Mouth reveals moist mucous membranes and the throat is without erythema and exudate. The external ears are intact. The ear canals are patent and without drainage. The tympanic membranes are intact. Neck: The neck is supple with full range of motion and non-tender. There are no carotid bruits. There is no neck vein distension. Respiratory: Chest is non-tender. Lungs are clear to auscultation and breath sounds are symmetrical and equal. Cardiovascular: Heart is regular rate and rhythm. There is no murmur or rub auscultated. There is no peripheral edema and pulses are symmetrical and equal. Abdomen: The abdomen is soft with tenderness to the LLQ. No rebound. There are normal bowel sounds heard in all four quadrants and there is no organomegaly palpated. Musculoskeletal: There is no back tenderness noted. Extremities are non-tender with full range of motion. There is good capillary refill. There is no peripheral edema or calf tenderness elicited. Neurological: Patient is alert and oriented to person, place and time. The patient has symmetrical motor strength in all four extremities. Cranial nerves are grossly intact. Deep tendon reflexes are symmetrical and equal in all four extremities. Psychiatric: The patient has an appropriate affect and does not exhibit any anxiety or depression. Triage Information Reviewed: Yes Vital Signs On Initial Exam: Initial Vitals Temp Pulse Resp BP Pulse Ox 99 F 98 18 176/98 94 06/13/18 11:01 06/13/18 11:01 06/13/18 11:01 06/13/18 11:01 06/13/18 11:01 Vital Signs Reviewed: Yes Diagnostics - Vital Signs Vital Signs Temp Pulse Resp BP Pulse Ox 06/13/18 11:01 99 F 98 18 176/98 94 - Laboratory Result Diagrams: 06/13/18 12:00 06/13/18 12:05 Lab Statement: Any lab studies that have been ordered have been reviewed, and results considered in the medical decision making process. Abdominal Pain Fem Course/Dx - Course Course Of Treatment: Mr. Bardales presented with left lower quadrant pain and tenderness gradually getting worse over the last few days. He had a hard weekend and saw his PCP Dr. June Irvin on Tuesday which was yesterday. She ordered a CT scan for today which revealed sigmoid diverticulitis with likely ruptured possible abscess. Labs were obtained here and he was noted to be stable with his vital signs. The hospitalist were contacted for admission and further workup. - Diagnoses Provider Diagnoses: Diverticulitis of intestine with perforation - Provider Notifications Discussed Care Of Patient With: Annia Gipson - hospitalist Time Discussed With Above Provider: 13:00 Instructed by Provider To: Admit As Inpatient Discharge - Sign-Out/Discharge Documenting (check all that apply): Patient Departure - admit - Discharge Plan Condition: Stable Disposition: ADMITTED TO [facility] - Billing Disposition and Condition Condition: STABLE Disposition: Admitted to [facility] - Attestation Statements Document Initiated by Scribe: Yes Documenting Scribe: Rosana Almaraz Provider For Whom Scribe is Documenting (Include Credential): Tyson De Guzman MD Scribe Attestation: IRosana, scribed for Tyson De Guzman MD on 06/13/18 at 1520. Scribe Documentation Reviewed: Yes Provider Attestation: The documentation as recorded by the Rosana marshall accurately reflects the service I personally performed and the decisions made by me, Tyson De Guzman MD
[2018-06-13 12:17] LABS: ABS Basophils 0 10^3/ul (0-0.2); ABS Eosinophils 0.1 10^3/ul (0-0.6); ABS Lymphocytes 1.2 10^3/ul (1.0-4.8); ABS Monocytes 0.7 10^3/ul (0-0.8); ABS Neutrophils 5.4 10^3/ul (1.5-7.7); ABS Nucleated RBC 0 10^3/ul; Eosinophil % 1.1 % (0-6); Hematocrit 43 % (42-52); Hemoglobin 15.1 g/dl (14.0-18.0); Lymphocyte % 15.6 % (25-47); Mean Corpuscular HGB Conc 35 g/dl (31-36); Mean Corpuscular Hemoglobin 33 pg (27-31); Mean Corpuscular Volume 93 fL (80-94); Mean Platelet Volume 7.3 um3 (7.4-10.4); Nucleated Red Blood Cells % 0; Platelet Count 277 10^3/ul (150-450); Red Blood Count 4.66 10^6/ul (4.00-5.40); Red Cell Distribution Width 13 % (10.5-15); White Blood Count 7.4 10^3/ul (3.5-10.8)
[2018-06-13 12:26] LABS: INR 0.97 (0.77-1.02)
[2018-06-13 12:39] LABS: EGFR Non-African American 84.4 (>60)
[2018-06-13] MEDS ORDERED: Morphine INJ* 2 MG/ML 1 ML SYRINGE (TWO MG - NEW SYRINGE VERSION) IV PRN (14:21)
[2018-06-13] MEDS ORDERED: oxyCODONE/Acetamin 5/325 MG* TAB PO PRN (14:21)
[2018-06-13] MEDS ORDERED: Temazepam CAP* 15 MG PO PRN (14:21)
[2018-06-13] MEDS ORDERED: Al Hydrox/Mg Hydrox/Simet LIQ* 30 ML UDC PO PRN (14:21)
[2018-06-13] MEDS: cefTRIAXone(*) 1 GM in NS 0.9% 50 ML* 50 ML IVPB SCH (16:14)
[2018-06-13] MEDS: NS 0.9% 1000 ML* 1,000 ML IV SCH (16:14)
[2018-06-13] MEDS: metroNIDAZOLE IV 500 MG/100ML* 500 MG/100 ML BAG IVPB SCH (17:07)
[2018-06-13] MEDS: Omeprazole CAP* 20 MG PO SCH (19:49)
--- NOTE | 2018-06-13 21:32 | HP ---
CC: Dr. June Irvin * HISTORY AND PHYSICAL: DATE OF ADMISSION: 06/13/18 PRIMARY CARE PROVIDER: Dr. June Irvin. CHIEF COMPLAINT: Abdominal pain and abnormal CT scan of the abdomen. HISTORY OF PRESENT ILLNESS: Mitchell Bardales is a 68-year-old male with history of gastroesophageal reflux disease, who stated that he started having severe abdominal pain approximately a week ago. Approximately 3 days ago, the pain was "horrible" to the point that he thought he will . He stated that he waited over the weekend to see his primary care provider on Tuesday. He had lab work done and CAT scan of the abdomen reported today perforated sigmoid diverticulitis. He presented to the ED with the CT report for evaluation. He was started on Augmentin and he took the first dose yesterday. He is going to be admitted with a diagnosis of perforated diverticulitis. PAST MEDICAL HISTORY: 1. History of gastroesophageal reflux disease, severe with chronic cough that improved after treatment with proton pump inhibitor. 2. History of dyslipidemia. PAST SURGICAL HISTORY: History of cataract surgery. CURRENT MEDICATIONS: Include: 1. Protonix 40 mg in the morning. 2. Omeprazole [id number] 20 mg at night. ALLERGIES: No known drug allergies, but he has questionable allergy to IV DYE. FAMILY HISTORY: Mother with history of CVA and [place] in her 80s. Father with history of cancer. SOCIAL HISTORY: The patient has a history of smoking. He quit smoking 11 years ago. He drinks 6 to 8 beers a day. Surrogate decision maker is his girlfriend, Aidee. REVIEW OF SYSTEMS: Please see history of present illness. In addition to above mentioned, the patient stated that his bowels have been regular. His abdominal pain is much better than it was 3 days ago. He denies any fevers. All the remaining 12 systems were reviewed with the patient and were otherwise negative. PHYSICAL EXAMINATION GENERAL: The patient is a very pleasant 68-year-old male, who is in no acute distress. Alert, awake, and oriented x3. VITAL SIGNS: Blood pressure of 176/98, heart rate of 98 and regular, respiratory rate 18, oxygen saturation 94% on room air, temperature of 99.4. HEENT: Head: Atraumatic, normocephalic. Eyes: Pupils are equal, reactive to light and accommodation. Oropharynx is clear. Mucosa moist. NECK: Supple. No JVD. No bruits bilaterally. RESPIRATORY: Clear to auscultation bilaterally. CARDIOVASCULAR: Regular rate and rhythm. No murmur. ABDOMEN: Distended, soft, markedly tender in the left lower quadrant with positive guarding. No rebound. Bowel sounds are hypoactive, but present in all 4 quadrants. EXTREMITIES: There is no edema. Pulses are +2 bilaterally. No clubbing or cyanosis. NEUROLOGIC: Speech is clear. Cranial nerves II through XII are grossly intact. Motor strength is 5/5 bilaterally. SKIN: On evaluation of the skin, no ecchymotic areas or rashes noted. DIAGNOSTIC STUDIES/LAB DATA: Showed white blood cell count of 7.4, hemoglobin of 15.1, hematocrit of 43, and platelets of 277. Sodium was 137, potassium 3.7 , chloride 106, carbon dioxide 24, BUN 14, creatinine 0.9. Liver function tests unremarkable apart from mild elevation of ALT at 58. The patient's C- reactive protein was 54. CT of the abdomen obtained at [facility] today, impression: "Finding compatible with ruptured acute sigmoid diverticulitis with probable phlegmonous changes versus developing abscess measuring approximately 1.8 cm in diameter. Recommend routine followup in 4 to 6 weeks after completion of treatment to exclude an underlying mass lesion. No hydronephrosis or nephrolithiasis. Enlarged prostate at 6.5 cm. Correlation with PSA level may be considered. Significantly, results were discussed with Dr. June Irvin." ASSESSMENT AND PLAN: 1. The patient has perforated sigmoid diverticulitis. At this point, he is in no acute distress and he does not meet sepsis criteria. He is going to be admitted to the hospital with clear liquids for diet, intravenous fluids, supportive treatment as well as treatment with ceftriaxone and Flagyl. I will ask surgical service to follow up with the patient in consultation, but hopefully the patient's infection will need only conservative treatment. 2. In regards to the patient's gastroesophageal reflux disease, which is rather severe, Prilosec twice a day is going to be continued. 3. For DVT prophylaxis, the patient is going to be placed on heparin subcutaneously. 4. The patient's code status is full. His surrogate is his significant other, Aidee Szymanski. TIME SPENT: Approximately 65 minutes were spent on admission of this patient, more than half of that time was spent [id number] with the patient during the interview and physical exam. [id number]/[facility] #: [id number] TESFAYE
[2018-06-13] MEDS: Heparin VIAL(*) 5000 UNITS/ML VIAL (FIVE THOUSAND) SUBCUT SCH (21:38)
--- NOTE | 2018-06-13 23:44 | CONS ---
CC: June Irvin MD in [place] * CONSULTATION REPORT: DATE OF CONSULT: 06/13/18 REQUESTING PHYSICIAN: Dr. Annia Gipson. REASON FOR CONSULT: Perforated diverticulitis. HISTORY OF PRESENT ILLNESS: Mr. Bardales is a 68-year-old gentleman with no significant past medical history, who reports gradual onset of left lower quadrant abdominal pain starting on 06/07/18. Initially, he thought he had pulled muscle as this occurred after he had been lifting heavy 5-gallon tubs at his residence. He had no fevers or chills and no nausea or vomiting. He denies constipation or diarrhea. He did not take any pain medication and noted that the pain worsened over the next 2 to 3 days to the point where it was so severe on 06/10/18 that he decided to seek medical care. The patient did see his primary care provider, Dr. Irvin in [place] on 06/12/18, at which point he was started on oral antibiotics and referred for outpatient CT scan abdomen and pelvis. He took 1 dose of antibiotics and presented for CT scan this morning and after he returned home, he received a phone call from Dr. Irvin's office directing him to the emergency room. The patient again denies fevers, chills, nausea, vomiting, diarrhea, or constipation. He does have pain prior to urinating that seems to improve as he voids, which he relates to this abdominal pain. He notes no hematuria. He denies having similar pain in the past. PAST MEDICAL HISTORY: GERD. PAST SURGICAL HISTORY: Bilateral cataracts. MEDICATIONS: 1. Protonix 40 mg p.o. b.i.d. 2. Augmentin 875 mg p.o. b.i.d. ALLERGIES: IV CONTRAST AND CHLORINE. FAMILY HISTORY: Noncontributory. SOCIAL HISTORY: He is an ex-smoker with history of smoking a pack and a half a day for 40 years. He drinks 7 to 8 beers daily. 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 He has been engaged for 11 years. REVIEW OF SYSTEMS: As above. PHYSICAL EXAM: Temperature 99, T-max; pulse 76; respirations 17; O2 sat 95% on room air; blood pressure 155/96. He is 5 feet 9 inches tall, 222 pounds. Sclerae anicteric and his mucous membranes are moist. His abdomen is protuberant with no scars. He has no distention or tympany. Bowel sounds are present. It is soft in all 4 quadrants with tenderness in the left lower quadrant and suprapubic region. There is tenderness to percussion in the left lower quadrant. Extremities are warm. DIAGNOSTIC STUDIES/LAB DATA: His WBCs are 7.4, hemoglobin 15.1, platelets 277. There is no left shift. His chemistries are notable for elevated glucose at 134. ALT elevated at 58. CRP is 54. Imaging from [facility] is a CT scan abdomen and pelvis without oral or IV contrast demonstrating phlegmonous changes involving the proximal sigmoid colon with droplets of free air and no fluid collections noted. IMPRESSION: A 68-year-old male with first episode of sigmoid diverticulitis with microperforation. It does not appear to require any urgent or emergent surgical intervention. PLAN/RECOMMENDATIONS: Agree with plan for admission with IV antibiotics and serial abdominal exams and laboratory work to assess improvement. Should he fail to improve or if he subsequently develops complications, surgical intervention may be needed. [facility] will be available to you. [id number]/[facility] #: [id number] GILESD
[2018-06-14] MEDS: metroNIDAZOLE IV 500 MG/100ML* 500 MG/100 ML BAG IVPB SCH ×4 (00:08→23:53)
[2018-06-14] MEDS: NS 0.9% 1000 ML* 1,000 ML IV SCH ×3 (04:14→21:41)
[2018-06-14 05:55] LABS: ABS Basophils 0 10^3/ul (0-0.2); ABS Eosinophils 0.1 10^3/ul (0-0.6); ABS Lymphocytes 1.2 10^3/ul (1.0-4.8); ABS Monocytes 0.7 10^3/ul (0-0.8); ABS Neutrophils 5.3 10^3/ul (1.5-7.7); ABS Nucleated RBC 0 10^3/ul; Hematocrit 41 % (42-52); Hemoglobin 14.3 g/dl (14.0-18.0); Lymphocyte % 16.4 % (25-47); Mean Corpuscular HGB Conc 35 g/dl (31-36); Mean Corpuscular Hemoglobin 32 pg (27-31); Mean Corpuscular Volume 93 fL (80-94); Mean Platelet Volume 6.9 um3 (7.4-10.4); Nucleated Red Blood Cells % 0.1; Platelet Count 270 10^3/ul (150-450); Red Blood Count 4.45 10^6/ul (4.00-5.40); Red Cell Distribution Width 13 % (10.5-15); White Blood Count 7.5 10^3/ul (3.5-10.8)
[2018-06-14] MEDS: Heparin VIAL(*) 5000 UNITS/ML VIAL (FIVE THOUSAND) SUBCUT SCH (06:06)
[2018-06-14 06:09] LABS: EGFR Non-African American 87.8 (>60)
[2018-06-14] MEDS: Acetaminophen TAB* 325 MG PO PRN ×3 (07:18→21:35)
[2018-06-14] MEDS: Omeprazole CAP* 20 MG PO SCH ×2 (08:20→21:36)
--- NOTE | 2018-06-14 09:04 | PN ---
Subjective Date of Service: 06/14/18 Interval History: Pt c/o mild dull pain in LLQ.tolerating clears well. No BM x 24H Objective Active Medications: Acetaminophen (Tylenol Tab*) 650 mg PO Q4H PRN PRN Reason: FEVER/PAIN Last Admin: 06/14/18 07:18 Dose: 650 mg Al Hydrox/Mg Hydrox/Simethicone (Maalox Plus*) 30 ml PO Q6H PRN PRN Reason: INDIGESTION Heparin Sodium (Porcine) (Heparin Vial(*)) 5,000 units SUBCUT Q8HR [facility] Last Admin: 06/14/18 06:06 Dose: Not Given Sodium Chloride (Ns 0.9% 1000 Ml*) 1,000 mls @ 100 mls/hr IV PER RATE [facility] Last Admin: 06/14/18 04:14 Dose: 100 mls/hr Metronidazole/Sodium Chloride (Flagyl 500 Mg Ivpb*) 500 mg in 100 mls @ 100 mls /hr IVPB Q8H [facility] Last Admin: 06/14/18 08:20 Dose: 100 mls/hr Ceftriaxone Sodium 1 gm/ (Sodium Chloride) 50 mls @ 200 mls/hr IVPB Q24H [facility] Last Admin: 06/13/18 16:14 Dose: 200 mls/hr Morphine Sulfate (Morphine Inj ((Syringe))*) 1 mg IV Q4H PRN PRN Reason: PAIN - MILD Omeprazole (Prilosec Cap*) 20 mg PO BID [facility] Last Admin: 06/14/18 08:20 Dose: 20 mg Oxycodone/Acetaminophen (Percocet 5/325 Tab*) 1 tab PO Q4H PRN PRN Reason: Pain Temazepam (Restoril Cap*) 15 mg PO BEDTIME PRN PRN Reason: INSOMNIA Vital Signs - 8 hr 06/14/18 06/14/18 06/14/18 03:33 07:10 07:25 Temperature 98.0 F 98.4 F Pulse Rate 74 74 Respiratory 18 16 16 Rate Blood Pressure 115/60 135/71 (mmHg) O2 Sat by Pulse 93 94 94 Oximetry Oxygen Devices in Use Now: None Appearance: 68 yo M in nAD, aAOx3 Eyes: No Scleral Icterus, PERRLA Ears/Nose/Mouth/Throat: NL Teeth, Lips, Gums, Mucous Membranes Moist Neck: NL Appearance and Movements; NL JVP, Trachea Midline Respiratory: Symmetrical Chest Expansion and Respiratory Effort, Clear to Auscultation Cardiovascular: NL Sounds; No Murmurs; No JVD, RRR Abdominal: - - distended, soft, tender in LLQ, no rebound, + guarding, BS+ Lymphatic: No Cervical Adenopathy Extremities: No Edema Skin: No Rash or Ulcers, No Nodules or Sclerosis Neurological: Alert and Oriented x 3, NL Muscle Strength and Tone Result Diagrams: 06/14/18 05:43 06/14/18 05:43 Assess/Plan/Problems-Billing Assessment: 68 yo M with h/o ETOH use(6-8 beers /day), GERD presents with perforated diverticulitis - Patient Problems (1) Diverticulitis large intestine Comment: with perforation and possible organizing abscess at 1.8 cm Still ceo and 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 Status and Disposition: Inpatient
[2018-06-14] MEDS: cefTRIAXone(*) 1 GM in NS 0.9% 50 ML* 50 ML IVPB SCH (15:32)
--- NOTE | 2018-06-14 18:46 | PN ---
Progress Note - Progress Note Date of Service: 06/14/18 SOAP: Subjective: He feels much better after a BM. No pain/N/V reported. He reports he has never had a colonoscopy. Objective: Vital Signs Temp 98.4 F 06/14/18 15:41 Pulse 81 06/14/18 15:41 Resp 20 06/14/18 15:41 BP 144/79 06/14/18 15:41 Pulse Ox 98 06/14/18 15:41 gen: NAD abd: protruberant; soft; decreased tenderness in suprapubic and LLQ. Intake & Output 06/13/18 06/14/18 06/14/18 18:59 06:59 18:59 Intake Total 1000 2850 950 Output Total 503 663 7940 Balance 825 2130 -325 Weight 222 lb Intake: IV Fluids 950 NS (0.9%) 950 IVPB 100 ABX - FLAGYL 100 Oral 1000 1800 950 Output: Urine 271 467 3362 Laboratory Results - last 24 hr 06/14/18 06/14/18 05:43 05:43 WBC 7.5 RBC 4.45 Hgb 14.3 Hct 41 L MCV 93 MCH 32 H MCHC 35 RDW 13 Plt Count 270 MPV 6.9 L Neut % (Auto) 71.2 Lymph % (Auto) 16.4 L Bracken % (Auto) 9.8 H Eos % (Auto) 2.0 Baso % (Auto) 0.6 Absolute Neuts (auto) 5.3 Absolute Lymphs (auto) 1.2 Absolute Monos (auto) 0.7 Absolute Eos (auto) 0.1 Absolute Basos (auto) 0 Absolute Nucleated RBC 0 Nucleated RBC % 0.1 Sodium 138 Potassium 3.6 Chloride 108 Carbon Dioxide 24 Anion Gap 6 BUN 12 Creatinine 0.87 Est GFR ( Amer) 106.2 Est GFR (Non-Af Amer) 87.8 BUN/Creatinine Ratio 13.8 Glucose 103 H Calcium 8.5 L Assessment: Presumed sigmoid diverticulitis. He is clinically improved and does not require surgical intervention. Plan: Continue antibiotics. Slowly progress to low residue diet. He should have a referral to GI as he will eventually need a colonoscopy to r/o malignancy (d/w patient).
[2018-06-15 06:40] LABS: Hematocrit 40 % (42-52); Hemoglobin 14.2 g/dl (14.0-18.0); Mean Corpuscular HGB Conc 36 g/dl (31-36); Mean Corpuscular Hemoglobin 33 pg (27-31); Mean Corpuscular Volume 92 fL (80-94); Platelet Count 270 10^3/ul (150-450); Red Blood Count 4.34 10^6/ul (4.00-5.40); Red Cell Distribution Width 13 % (10.5-15); White Blood Count 5.8 10^3/ul (3.5-10.8)
[2018-06-15 06:54] LABS: EGFR Non-African American 86.6 (>60)
[2018-06-15] MEDS: metroNIDAZOLE IV 500 MG/100ML* 500 MG/100 ML BAG IVPB SCH ×2 (08:15→16:27)
[2018-06-15] MEDS: NS 0.9% 1000 ML* 1,000 ML IV SCH (08:15)
[2018-06-15] MEDS: Omeprazole CAP* 20 MG PO SCH ×2 (08:50→19:32)
--- NOTE | 2018-06-15 15:23 | PN ---
Subjective Date of Service: 06/15/18 Interval History: pt feels much better today. abd pain "minimal" Objective Active Medications: Acetaminophen (Tylenol Tab*) 650 mg PO Q4H PRN PRN Reason: FEVER/PAIN Last Admin: 06/14/18 21:35 Dose: 650 mg Al Hydrox/Mg Hydrox/Simethicone (Maalox Plus*) 30 ml PO Q6H PRN PRN Reason: INDIGESTION Metronidazole/Sodium Chloride (Flagyl 500 Mg Ivpb*) 500 mg in 100 mls @ 100 mls /hr IVPB Q8H [facility] Last Admin: 06/15/18 08:15 Dose: 100 mls/hr Ceftriaxone Sodium 1 gm/ (Sodium Chloride) 50 mls @ 200 mls/hr IVPB Q24H [facility] Last Admin: 06/14/18 15:32 Dose: 200 mls/hr Sodium Chloride (Ns 0.9% 1000 Ml*) 1,000 mls @ 50 mls/hr IV PER RATE [facility] Last Admin: 06/15/18 08:15 Dose: 50 mls/hr Morphine Sulfate (Morphine Inj ((Syringe))*) 1 mg IV Q4H PRN PRN Reason: PAIN - MILD Omeprazole (Prilosec Cap*) 20 mg PO BID [facility] Last Admin: 06/15/18 08:50 Dose: 20 mg Oxycodone/Acetaminophen (Percocet 5/325 Tab*) 1 tab PO Q4H PRN PRN Reason: Pain Temazepam (Restoril Cap*) 15 mg PO BEDTIME PRN PRN Reason: INSOMNIA Vital Signs - 8 hr 06/15/18 09:05 Temperature 97.7 F Pulse Rate 67 Respiratory 16 Rate Blood Pressure 147/75 (mmHg) O2 Sat by Pulse 97 Oximetry Oxygen Devices in Use Now: None Appearance: 68 yo m in nAD, aAOx3 Eyes: No Scleral Icterus, PERRLA Ears/Nose/Mouth/Throat: NL Teeth, Lips, Gums, Mucous Membranes Moist Neck: NL Appearance and Movements; NL JVP, Trachea Midline Respiratory: Symmetrical Chest Expansion and Respiratory Effort, Clear to Auscultation Cardiovascular: NL Sounds; No Murmurs; No JVD Abdominal: - - distended, tympanic, mild tenderness in LLQ, no rebound, no guarding, BS+ Lymphatic: No Cervical Adenopathy Extremities: No Edema Skin: No Rash or Ulcers, No Nodules or Sclerosis Neurological: Alert and Oriented x 3, NL Muscle Strength and Tone Result Diagrams: 06/15/18 06:16 06/15/18 06:16 Microbiology and Other Data: Microbiology 06/13/18 12:00 Aerobic Blood Culture - Preliminary Blood Venous No Growth Day 2 Anaerobic Blood Culture - Preliminary No Growth Day 2 06/13/18 12:05 Aerobic Blood Culture - Preliminary Blood Venous No Growth Day 2 Anaerobic Blood Culture - Preliminary No Growth Day 2 Assess/Plan/Problems-Billing Assessment: 68 yo M with h/o ETOH use(6-8 beers /day), GERD presents with perforated diverticulitis - Patient Problems (1) Diverticulitis large intestine Comment: with perforation and possible organizing abscess at 1.8 cm 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 Status and Disposition: Inpatient
[2018-06-15] MEDS: cefTRIAXone(*) 1 GM in NS 0.9% 50 ML* 50 ML IVPB SCH (15:35)
[2018-06-16] MEDS: metroNIDAZOLE IV 500 MG/100ML* 500 MG/100 ML BAG IVPB SCH ×2 (00:10→07:47)
[2018-06-16] MEDS: Omeprazole CAP* 20 MG PO SCH (07:47)
[2018-06-16 08:12] VITALS: BP 139/77
--- NOTE | 2018-06-17 03:55 | DS ---
CC: Dr. June Irvin; Dr. Negron * DISCHARGE SUMMARY: DATE OF ADMISSION: 06/13/18 DATE OF DISCHARGE: 06/16/18 PRIMARY CARE PROVIDER: Dr. June Irvin. DISCHARGE DIAGNOSES: Acute sigmoid diverticulitis with perforation and microabscess. SECONDARY DIAGNOSES: 1. Gastroesophageal reflux disease. 2. History of dyslipidemia. MEDICATIONS AT DISCHARGE: Include: 1. Ciprofloxacin 500 mg p.o. b.i.d. for 14 days total. 2. Metronidazole 500 mg 3 times a day for 14 days total. 3. Protonix 40 mg b.i.d. actually takes 40 mg in the morning of Protonix and 20 mg at night of omeprazole. LABORATORY DATA AND STUDIES PERFORMED DURING THE HOSPITAL STAY: On 06/15/18, white blood cell count of 5.8, hemoglobin of 14.2, hematocrit of 40, and platelets of 270. Sodium was 141, potassium 3.7, chloride 111, carbon dioxide 23, BUN 9, creatinine 0.88. CONSULTATIONS DURING THE HOSPITAL STAY: Included Dr. Negron. HOSPITALIZATION COURSE: Mitchell Bardales is a 68-year-old male who presented to our hospital with CT scan read from [facility] that showed ruptured acute sigmoid diverticulitis with probable phlegmonous changes of 1.8 cm in diameter. The patient was admitted to the hospital. Initially, he had significant left lower quadrant abdominal pain. He was placed on ceftriaxone and Flagyl with very good results. He never developed fever or leukocytosis. Gradually, his diet was able to be increased to the point that he was up to soft diet by the time of discharge. He was educated about low-fiber diet initially by our nutrition service. By the time of discharge, he complained of flatulence and abdominal distention, but the abdominal pain resolved. He had no problems with bowel movements and no nausea and vomiting. He is going to be discharged home with recommendations to continue his oral antibiotics for a total of 14 days. He is to follow up with Dr. Negron in approximately 1 to 2 weeks. He is to follow up with his primary care provider in approximately 4 to 7 days. The patient is recommended to have a followup CT scan in 4 to 6 weeks to document resolution of his phlegmon. PHYSICAL EXAMINATION AT THE TIME OF DISCHARGE: Blood pressure of 139/77, heart rate of 70 and regular, respiratory rate 18, oxygen saturation 94% on room air, temperature 97.5. General: The patient is a very pleasant 68-year-old male, who is in no acute distress. Alert and oriented x3. HEENT: Head: Atraumatic , normocephalic. Eyes: Pupils are equal, reactive to light and accommodation. Oropharynx is clear. Mucosa moist. Neck: Supple. No JVD. No bruits bilaterally. Cardiovascular: Regular rate and rhythm. No murmur. Respiratory : Clear to auscultation bilaterally. Abdomen: Distended, soft, nontender. Tympanic to percussion. Bowel sounds are present in all 4 quadrants. Extremities: There is no edema. Pulses are 2+ bilaterally. No clubbing or cyanosis. Neuro Evaluation: Speech clear. Cranial nerves II through XII grossly intact. Motor strength is 5/5 bilaterally. Please note that this is a short summary of the patient's hospital stay. Please refer to further medical records for details. TIME SPENT: Approximately 40 minutes were spent on the patient's discharge. [id number]/[facility] #: [id number] TESFAYE
== END 2018-06-16 11:20 | disposition home or self-care (01) | DRG 392 ==
LOC: ED 10:59 → SSU 14:54
PROVIDERS: ADMIT Internal Medicine; ATTEND Internal Medicine
DX: K57.20 Diverticulitis of large intestine with perforation and abscess without bleeding (principal); J45.909 Unspecified asthma, uncomplicated; K21.9 Gastro-esophageal reflux disease without esophagitis; E78.5 Hyperlipidemia, unspecified; Z82.49 Family history of ischemic heart disease and other diseases of the circulatory system; Z91.041 Radiographic dye allergy status; Z72.89 Other problems related to lifestyle; Z87.891 Personal history of nicotine dependence; Z82.3 Family history of stroke; Z98.42 Cataract extraction status, left eye; Z98.41 Cataract extraction status, right eye
CPT/HCPCS: 36415; 80048; 80053; 83605; 85025; 85027; 85610; 86140; 87040; 99283; A9270-GY; J0696; J3490

== ENCOUNTER 2019-06-22 19:55 | Emergency (ER) | payer MEDICARE, OTHER ==
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
[2019-06-22] MEDS ORDERED: NS 0.9% 1000 ML** 2,000 ML IV ONE (20:18)
[2019-06-22] MEDS ORDERED: Ondansetron INJ* 2 MG/ML VIAL IV ONE (20:18)
[2019-06-22] MEDS ORDERED: Ketorolac INJ* 30 MG/ML 1 ML VIAL IV PUSH ONE (20:18)
[2019-06-22] MEDS ORDERED: Morphine 4 MG/ML VIAL (1 ml) 4 MG/ML VIAL IV ONE (20:18)
[2019-06-22 20:38] LABS: ABS Lymphocytes 1.2 10^3/ul (1.0-4.8); ABS Monocytes 0.7 10^3/ul (0-0.8); ABS Neutrophils 7.7 10^3/ul (1.5-7.7); Eosinophil % 0.4 %; Hematocrit 50 % (42-52); Hemoglobin 18.3 g/dL (14.0-18.0); Lymphocyte % 12.3 %; Mean Corpuscular HGB Conc 36 g/dL (31-36); Mean Corpuscular Hemoglobin 33 pg (27-31); Mean Corpuscular Volume 91 fL (80-94); Mean Platelet Volume 6.9 fL (7.4-10.4); Platelet Count 264 10^3/uL (150-450); Red Blood Count 5.57 10^6 /uL (4.18-5.48); Red Cell Distribution Width 14 % (10-15); White Blood Count 9.7 10^3/uL (3.5-10.8)
[2019-06-22 20:51] LABS: Albumin 4.1 g/dL (3.2-5.2); Albumin/Globulin Ratio 1.2 (1-3); BUN/Creatinine Ratio 14.9 (8-20); C Reactive Protein 22.28 mg/L (<8.01); Calcium 9.1 mg/dL (8.6-10.3); EGFR African American 89.2 (>60); EGFR Non-African American 73.7 (>60); Globulin 3.4 g/dL (2-4); Potassium 3.8 mmol/L (3.5-5.0); Total Bilirubin 0.8 mg/dL (0.2-1.0); Total Protein 7.5 g/dL (6.4-8.9)
[2019-06-22 23:50] VITALS: BP 148/91
== END 2019-06-22 23:48 | disposition home or self-care (01) ==
LOC: ED 19:55
DX: K52.9 Noninfective gastroenteritis and colitis, unspecified (principal); K21.9 Gastro-esophageal reflux disease without esophagitis; N40.0 Benign prostatic hyperplasia without lower urinary tract symptoms; K76.0 Fatty (change of) liver, not elsewhere classified; N28.1 Cyst of kidney, acquired; K57.30 Diverticulosis of large intestine without perforation or abscess without bleeding; Z87.891 Personal history of nicotine dependence; Z91.041 Radiographic dye allergy status; Z91.048 Other nonmedicinal substance allergy status; Z79.899 Other long term (current) drug therapy
CPT/HCPCS: 36415; 74176; 80053; 85025; 86140; 96361; 96374; 96375; 99283; J1885; J2270; J2405

== ENCOUNTER 2021-07-04 01:01 | Inpatient (IN) ==
[2021-07-04] MEDS ORDERED: Morphine 4 MG/ML VIAL (1 ml) IV ONE ×3 (02:04→08:34)
[2021-07-04 02:45] LABS: ABS Eosinophils 0.1 10^3/ul (0-0.6); ABS Monocytes 0.6 10^3/ul (0-0.8); ABS Neutrophils 6.7 10^3/ul (1.5-7.7); Eosinophil % 1.3 %; Hematocrit 45 % (42-52); Hemoglobin 15.9 g/dL (14.0-18.0); Lymphocyte % 11.7 %; Mean Corpuscular HGB Conc 35 g/dL (31-36); Mean Corpuscular Hemoglobin 32 pg (27-31); Mean Corpuscular Volume 91 fL (80-94); Platelet Count 229 10^3/uL (150-450); Red Blood Count 4.93 10^6 /uL (4.18-5.48); Red Cell Distribution Width 13 % (10-15); White Blood Count 8.4 10^3/uL (3.5-10.8)
[2021-07-04 03:02] LABS: Albumin/Globulin Ratio 1.4 (1-3); C Reactive Protein 1.63 mg/L (<8.01); Globulin 2.8 g/dL (2-4); Potassium 4.3 mmol/L (3.5-5.0); Total Bilirubin 0.6 mg/dL (0.2-1.0); Total Protein 6.8 g/dL (6.4-8.9)
[2021-07-04 08:53] LABS: HDL Cholesterol 32.3 mg/dL
[2021-07-04] MEDS ORDERED: Lactated Ringers 1000 ml BAG 1,000 ML IV ONE ×2 (09:13→10:20)
[2021-07-04] MEDS ORDERED: Ondansetron 4 mg VIAL 2 MG/ML 2 ml VIAL IV PRN (09:20)
[2021-07-04] MEDS: Pantoprazole VIAL 40 MG VIAL IV SCH (10:40)
[2021-07-04] MEDS: Morphine 2 MG/ML SYRINGE IV PRN ×4 (12:21→22:06)
[2021-07-04 12:24] LABS: Rapid COVID-19 Molecular Undetected (Undetected)
[2021-07-04] MEDS ORDERED: LORazepam 2 mg VIAL 1 ml IV PUSH PRN (14:55)
[2021-07-04] MEDS ORDERED: Lorazepam PYXIS KEY PRN (14:55)
[2021-07-04] MEDS: Lactated Ringers 1000 ml BAG 1,000 ML IV SCH ×2 (15:19→20:43)
[2021-07-04] MEDS ORDERED: Polyethyl Glycol/Propylene Gly OPHTH.SOLN BOTH EYES PRN (15:51)
[2021-07-05] MEDS: Lactated Ringers 1000 ml BAG 1,000 ML IV SCH ×2 (01:54→07:28)
[2021-07-05] MEDS: Morphine 2 MG/ML SYRINGE IV PRN ×6 (03:47→17:32)
[2021-07-05] MEDS: Pantoprazole VIAL 40 MG VIAL IV SCH (07:29)
[2021-07-05 09:51] LABS: ABS Eosinophils 0.1 10^3/ul (0-0.6); ABS Monocytes 0.9 10^3/ul (0-0.8); ABS Neutrophils 6.4 10^3/ul (1.5-7.7); Eosinophil % 1.5 %; Hematocrit 40 % (42-52); Hemoglobin 13.9 g/dL (14.0-18.0); Lymphocyte % 11.7 %; Mean Corpuscular HGB Conc 35 g/dL (31-36); Mean Corpuscular Hemoglobin 32 pg (27-31); Mean Corpuscular Volume 93 fL (80-94); Mean Platelet Volume 7.2 fL (7.4-10.4); Platelet Count 187 10^3/uL (150-450); Red Blood Count 4.33 10^6 /uL (4.18-5.48); Red Cell Distribution Width 13 % (10-15); White Blood Count 8.4 10^3/uL (3.5-10.8)
[2021-07-05 10:01] LABS: Albumin 3.4 g/dL (3.2-5.2); Albumin/Globulin Ratio 1.3 (1-3); Calcium 8.9 mg/dL (8.6-10.3); Direct Bilirubin 0.3 mg/dL (0.03-0.18); Globulin 2.6 g/dL (2-4); Indirect Bilirubin 1.2 mg/dL (0.3-1.0); Potassium 3.8 mmol/L (3.5-5.0); Total Bilirubin 1.5 mg/dL (0.2-1.0)
[2021-07-05] MEDS: Enoxaparin 40 MG/0.4 ML SYR SUBCUT SCH ×2 (11:28→11:36)
[2021-07-06 05:16] LABS: ABS Eosinophils 0.1 10^3/ul (0-0.6); ABS Neutrophils 6.1 10^3/ul (1.5-7.7); Eosinophil % 1.4 %; Hematocrit 40 % (42-52); Hemoglobin 13.9 g/dL (14.0-18.0); Lymphocyte % 12.2 %; Mean Corpuscular HGB Conc 35 g/dL (31-36); Mean Corpuscular Hemoglobin 32 pg (27-31); Mean Corpuscular Volume 93 fL (80-94); Nucleated Red Blood Cells % 0.1; Platelet Count 183 10^3/uL (150-450); Red Blood Count 4.35 10^6 /uL (4.18-5.48); Red Cell Distribution Width 12 % (10-15); White Blood Count 8.3 10^3/uL (3.5-10.8)
[2021-07-06 05:34] LABS: Albumin 3.3 g/dL (3.2-5.2); Albumin/Globulin Ratio 1.1 (1-3); Direct Bilirubin 0.6 mg/dL (0.03-0.18); Indirect Bilirubin 1.7 mg/dL (0.3-1.0); Potassium 3.8 mmol/L (3.5-5.0); Total Bilirubin 2.3 mg/dL (0.2-1.0); Total Protein 6.3 g/dL (6.4-8.9)
[2021-07-06] MEDS: Pantoprazole VIAL 40 MG VIAL IV SCH (11:02)
[2021-07-06] MEDS: Enoxaparin 40 MG/0.4 ML SYR SUBCUT SCH (11:10)
[2021-07-06] MEDS: Morphine 2 MG/ML SYRINGE IV PRN (19:52)
[2021-07-07] MEDS: Morphine 2 MG/ML SYRINGE IV PRN ×2 (00:44→05:16)
[2021-07-07 05:52] LABS: Albumin 3.5 g/dL (3.2-5.2); Albumin/Globulin Ratio 1.1 (1-3); Calcium 9.1 mg/dL (8.6-10.3); Globulin 3.3 g/dL (2-4); Potassium 3.7 mmol/L (3.5-5.0); Total Bilirubin 1.9 mg/dL (0.2-1.0); Total Protein 6.8 g/dL (6.4-8.9)
[2021-07-07] MEDS ORDERED: Morphine 2 MG/ML SYRINGE IV PRN (07:24)
[2021-07-07] MEDS: Pantoprazole VIAL 40 MG VIAL IV SCH (08:13)
[2021-07-07 11:21] VITALS: BP 141/71
[2021-07-07] MEDS: Enoxaparin 40 MG/0.4 ML SYR SUBCUT SCH (11:43)
== END 2021-07-07 15:30 | disposition home or self-care (01) | DRG 440 ==
LOC: SSU 01:01 → ED 01:01 → SSU 14:16 → SUATTDRO 14:28
PROVIDERS: ADMIT Internal Medicine; ATTEND Internal Medicine